=== PATIENT | male | born 1955 | race Caucasian/White ===

== ENCOUNTER 2016-12-02 05:43 | Inpatient (IN) | payer BC ==
[2016-11-19 20:01] LABS: BASOPHILS 0.6 %; BASOPHILS ABSOLUTE 0.04 10/3/uL (0.0-0.16); EOSINOPHILS 5.9 %; EOSINOPHILS ABSOLUTE 0.37 10/3/uL (0.0-0.53); HEMATOCRIT 44.1 % (40.0-51.0); IMMATURE GRANULOCYTES 0.2 %; IMMATURE GRANULOCYTES ABSOLUTE 0.01 10/3/uL (0.0-0.11); LYMPHOCYTES 31.6 %; LYMPHOCYTES ABSOLUTE 1.98 10/3/uL (0.67-4.30); MANUAL DIFF NO %; MEAN CORPUSCULAR HEMOGLOB 32.8 pg (26.0-34.0); MEAN CORPUSCULAR VOLUME 96.3 fL (80-100); MEAN PLATELET VOLUME 11.2 fL (9.2-13.0); NEUTROPHILS 53.7 %; NEUTROPHILS ABSOLUTE 3.37 10/3/uL (2.02-8.40); PLATELET COUNT 185 10/3/uL (150-400); RED CELL COUNT 4.58 10/6/uL (4.7-6.1); WHITE BLOOD CELLS 6.3 10/3/uL (4.5-10.5)
[2016-11-19 20:03] LABS: INTERNATIONAL NORMAL RATI 0.9 UNITS (-); PROTIME (NOT ORD) 12.4 SEC (12.0-14.5)
[2016-11-19 20:09] LABS: ASCORBIC ACID (UR NOT ORDER) NEG (NEG); BILIRUBIN, URINE NEGATIVE (NEG); KETONE, URINE NEGATIVE (NEG); LEUKOCYTE ESTERASE(NOT OR NEG (NEG); WBC (NOT ORDERED) (RFLEX) 1 (0-5)
[2016-11-19 20:18] LABS: A/G RATIO 1.6 (0.7-1.9); ALBUMIN 4.2 G/DL (3.5-5.0); ALKALINE PHOSPHATASE 74 U/L (45-117); BUN (BLOOD UREA NITROGEN) 19 MG/DL (6-23); CALCIUM, SERUM 9.6 MG/DL (8.5-10.4); CHLORIDE, SERUM 104 MMOL/L (96-112); CO2 (CARBON DIOXIDE) 30 MMOL/L (24-34); CREATININE 0.84 MG/DL (0.70-1.30); GFR AFRICAN AMERICAN 110 ML/MIN (>=60); GFR NON AFRICAN AMERICAN 95 ML/MIN (>=60); GLOBULIN 2.7 G/DL (2.5-4.1); GLUCOSE, SERUM 101 MG/DL (60-99); SGOT(AST) 20 U/L (5-40); SGPT(ALT) 30 U/L (5-65); SODIUM, SERUM 140 MMOL/L (135-148); TOTAL BILIRUBIN 0.7 MG/DL (0-1.2); TOTAL PROTEIN 6.9 G/DL (6.0-8.5)
--- NOTE | ~2016-12-02 | OP ---
Record Of Operation [facility] [address] [place]. [address] NAME: ABDULLAHI MARTÍNEZ : 55 STATUS : ADM IN PAT#: [id number] AGE: 61 ADM/REG DATE : 12/02/16 MR#: [id number] REPORT SERV DATE: 12/02/16 DICTATED BY: ABDULLAHI FRANKEL DATE: 12/02/16 REPORT STATUS : Draft TRANSCRIBED BY: MODL DATE: 12/02/16 DATE OF PROCEDURE: 12/02/2016 PREOPERATIVE DIAGNOSIS: Severe bilateral knee degenerative joint disease. POSTOPERATIVE DIAGNOSIS: Severe bilateral knee degenerative joint disease. OPERATION: Bilateral posterior stabilized total knee replacement, cemented. SIDE: Right and left. SIZE: See chart. ANESTHESIA: See chart. ESTIMATED BLOOD LOSS: About 10 mL, each knee. TOURNIQUET TIME: Approximately 1 hour and 10 minutes. COMPLICATIONS: None. SPECIMENS: Articular surfaces. DESCRIPTION OF PROCEDURE: The patient was appropriately identified and marked. The operative side agreed with the consent form and it was checked by all members of the surgical team. The patient was taken to the operating room and anesthesia was induced per the anesthesiologist. The patient was carefully transferred to the operating table without incident. The patient received appropriate prophylactic antibiotics and a Cervantes catheter was placed in the standard sterile technique. The patient was then carefully positioned, padded, prepped and draped in the normal sterile fashion. The operative leg had been appropriately identified and checked by all members of the operating team against the consent form and found to be the correct limb. The patient's lower extremity was then exsanguinated with an Dk wrap and a tourniquet was inflated to 350 mmHg. Sharp dissection was carried out through a straight midline longitudinal incision and electrocautery through the fat. Sharp quad splitting approach was carried out between about the medial 10 percent of the tendon and the lateral 90 percent of the tendon and down around the medial aspect of the patella and then 1 cm medial to the tibial tubercle. The patella was carefully everted and the posterior fat pad was excised and gentle MCL elevation was carried out off the proximal medial tibia subperiosteally. IM guide was placed in the distal femur after using the appropriate drill. The distal femoral cutting guide was held with 2 pins and the distal cut made. Meniscal fragments and the ACL and the PCL were excised with electrocautery, carefully staying anterior to the posterior fat pad. The proximal tibial alignment guide was set appropriately and the proximal tibial cut made. Spacer block verified full extension with excellent mediolateral balance. Sizing guide was used to place 2 drill holes Record Of Operation [facility] [address] [place]. [address] NAME: ABDULLAHI MARTÍNEZ : 55 STATUS : ADM IN PAT#: [id number] AGE: 61 ADM/REG DATE : 12/02/16 MR#: [id number] REPORT SERV DATE: 12/02/16 DICTATED BY: ABDULLAHI FRANKEL DATE: 12/02/16 REPORT STATUS : Draft TRANSCRIBED BY: MODL DATE: 12/02/16 in the distal femur and the four-in-one cutting block was then placed, impacted and checked to be sure it would not notch with an noni wing and it was held with 2 pins. The anterior cut, posterior cut, anterior chamfer and posterior chamfer cuts were made. The pins were removed and the block was removed. A posterior release was carried out with a curved 3/4 inch osteotome staying right on the bone posteriorly. The box-cut guide was then placed, impacted and held with 2 pins and a reciprocating saw was used to cut out the box. With the trial components in place, there was excellent medial/lateral balance. The patella was then measured with a caliper, cut first with an oscillating saw and then reamed with a patella reamer. With the trial patella in place, there was excellent patellar tracking. Rotation was marked on the tibia and the tibia prepared with a drill and stamp chisel. All surfaces were then copiously irrigated with pulsatile lavage, carefully dried and then vacuum-mixed cement was pressurized with a cement gun in a doughy phase. The tibial component was placed, impacted and excess cement was removed. The cement was then pressurized in the femur and placed on the posterior runners of the femoral component, which was placed, impacted and excess cement removed and the knee was brought out into extension on a trial spacer. The cement was then pressurized in the patella. Patellar component was then placed, clamped and excess cement was removed. Once all cement was hardened, the knee was taken through range of motion. Further extruded cement was removed with a small osteotome. Then based on the trial inserts, we decided on the actual insert, which was placed in the standard fashion and held with a locking mechanism. The knee was then copiously irrigated and then closed in a layered fashion over a medium Hemovac drain superolaterally with interrupted #1 in the deep fascia, 2-0 subcutaneous and patrick in the skin. The wounds were dressed sterilely and the tourniquet was deflated. After completion of the first knee and discussion with the anesthesiologist, all parameters were acceptable and we decided to proceed with the second knee. Same procedure as that dictated above was carried out on the contralateral knee. The contralateral leg was again appropriately identified and checked by all members of the operating team against the consent form and found to be the correct limb. The patient's lower extremity was then exsanguinated with an Dk wrap and a tourniquet was inflated to 350 mmHg. Sharp dissection was carried out through a straight midline longitudinal incision and electrocautery through the fat. Sharp quad splitting approach was carried out between about the medial 10 percent of the tendon and the lateral 90 percent of the tendon and down around the medial aspect of the patella and then 1 cm medial to the tibial tubercle. The patella was carefully everted and the posterior fat pad was excised and gentle MCL elevation was carried out off the proximal medial tibia subperiosteally. IM guide was placed in the distal femur after using the appropriate drill. The distal femoral cutting guide was held with 2 pins and the distal cut made. Meniscal fragments and the ACL and the PCL were excised with electrocautery, carefully staying anterior to the posterior fat pad. The proximal tibial alignment guide was set appropriately and the proximal tibial cut made. Spacer block verified full extension with excellent mediolateral balance. Sizing guide was used to place 2 drill holes in the distal femur and the four-in-one cutting block was then placed, impacted and checked to be sure it would not notch with an noni wing and it was held with 2 pins. The anterior cut, posterior cut, anterior chamfer and posterior chamfer cuts were made. The pins were removed and the block was removed. A posterior release was carried out with a curved 3/4 inch osteotome staying right on the bone posteriorly. The box Record Of Operation [facility] [address] [place]. [address] NAME: ABDULLAHI MARTÍNEZ : 55 STATUS : ADM IN LOCATED WITHIN [facility]#: [id number] AGE: 61 ADM/REG DATE : 12/02/16 MR#: [id number] REPORT SERV DATE: 12/02/16 DICTATED BY: ABDULLAHI FRANKEL DATE: 12/02/16 REPORT STATUS : Draft TRANSCRIBED BY: JOSUE DATE: 12/02/16 cut guide was then placed, impacted and held with 2 pins and a reciprocating saw was used to cut out the box. With the trial components in place, there was excellent medial/lateral balance. The patella was then measured with a caliper, cut first with an oscillating saw and then reamed with a patella reamer. With the trial patella in place, there was excellent patellar tracking. Rotation was marked on the tibia and the tibia prepared with a drill and stamp chisel. All surfaces were then copiously irrigated with pulsatile lavage, carefully dried and then vacuum-mixed cement was pressurized with a cement gun in a doughy phase. The tibial component was placed, impacted and excess cement was removed. The cement was then pressurized in the femur and placed on the posterior runners of the femoral component, which was placed, impacted and excess cement removed and the knee was brought out into extension on a trial spacer. The cement was then pressurized in the patella. Patellar component was then placed, clamped and excess cement was removed. Once all cement was hardened, the knee was taken through range of motion. Further extruded cement was removed with a small osteotome. Then based on the trial inserts, we decided on the actual insert, which was placed in the standard fashion and held with a locking mechanism. The knee was then copiously irrigated and then closed in a layered fashion over a medium Hemovac drain superolaterally with interrupted #1 in the deep fascia, 2-0 subcutaneous and patrick in the skin. The wounds were dressed sterilely and the tourniquet was deflated. The patient was then awakened and taken to the postanesthesia care unit without incident. All counts were correct at the end of the case. TOSIN/JOSUE Hina Frankel M.D. / [id number] CC: Zack Gilliam, M.D.
--- NOTE | ~2016-12-02 | OP ---
Record Of Operation [facility] [address] [place]. [address] NAME: ABDULLAHI MARTÍNEZ : 55 STATUS : DIS IN PAT#: [id number] AGE: 61 ADM/REG DATE : 12/02/16 MR#: [id number] REPORT SERV DATE: 12/24/16 DICTATED BY: ABDULLAHI FRANKEL DATE: 12/02/16 REPORT STATUS : Draft TRANSCRIBED BY: MODL DATE: 12/02/16 DATE OF PROCEDURE: 12/02/2016 PREOPERATIVE DIAGNOSIS: Severe left hip degenerative joint disease. POSTOPERATIVE DIAGNOSIS: Severe left hip degenerative joint disease. PROCEDURE: Uncemented total hip arthroplasty, Tri-Lock. SIDE: Left. BUDGET CONTROLLER: ANESTHESIA: See chart. SIZE: See chart. ESTIMATED BLOOD LOSS: About 100 mL. INDICATIONS FOR SURGERY: PROCEDURE: The patient was taken to the operating room and placed supine on the table without incident. Anesthetic was induced per the anesthesiologist. A Cervantes catheter was placed by the nurse in the standard sterile technique. The correct side for the procedure was identified by preoperative markings and matched with the consent form. All personnel in the room were in agreement regarding the procedure, patient, and side. The patient was then carefully positioned and carefully padded and prepped and draped in the normal sterile fashion. The patient received prophylactic preoperative antibiotics at the appropriate time. The preoperative x-ray was brought up on the monitor. Again, this was reviewed with the staff in the room. According with the preoperative plan, and angled, an anterolateral incision was made centered over the trochanter extending from proximal posterior to distal anterior. Electrocautery was used to maintain meticulous hemostasis. The IT band was split in line with its fibers. A Charnley retractor was placed over saline moistened laps. A standard anterolateral approach to the hip was carried out dissecting in line with the vastus medialis fibers lifting the inferior 20% of the vastus medialis, proximally the interior 20% of the gluteus medius and gluteus minimus tendons off the anterior capsule. Periosteal elevator was used to elevate soft tissue gently directly off the proximal anterior femoral bone. Appropriate retractors were carefully placed. Complete anterior capsulectomy was performed. The hip was then carefully dislocated with a combination of traction maneuver by the housekeeping assistant and scooping the ball out of the socket with a Hohmann. A femoral neck osteotomy was marked according to what had been preoperatively planned with a broach as a template. The distance for the femoral neck osteotomy was measured with a ruler. A femoral neck osteotomy was made with an oscillating saw under appropriate retraction. Meticulous hemostasis was again obtained. The leg was then brought up out of the anterior bag and Record Of Operation [facility] [address] [place]. [address] NAME: ABDULLAHI MARTÍNEZ : 55 STATUS : DIS IN PAT#: [id number] AGE: 61 ADM/REG DATE : 12/02/16 MR#: [id number] REPORT SERV DATE: 12/24/16 DICTATED BY: ABDULLAHI FRANKEL DATE: 12/02/16 REPORT STATUS : Draft TRANSCRIBED BY: JOSUE DATE: 12/02/16 positioned with the lower extremity in external rotation and slight flexion. Acetabular retractors were placed carefully palpating to be sure that they were directly on the bone. The acetabular labrum was excised with electrocautery and rongeur. Pulvinar fat was removed with a large curette and rongeur and again meticulous hemostasis was obtained. Sequential reamers were used in the acetabulum to 1 mm. less than the final size which was chosen. This was felt to give excellent interference fit. The acetabular fossa was then copiously irrigated with pulsatile lavage and actual acetabular component was placed and impacted and checked to make sure it was down snug. The overall alignment was checked. The acetabular physical chemist was then removed. Screws were placed in the standard fashion. A drill, depth gauge and self tapping screw placement taking care not to plunge as the drill holes were carefully placed. A trial liner was then placed and attention directed back to the proximal femur. The leg was placed back into the anterior bag. The proximal femur was prepared using a box chisel following by a T-handled reamer to determine the intramedullary alignment. This was followed by sequential broaches up to the final broach. Once it was seated in the appropriate position, a Calcar reamer was used to plane the proximal femur. Trial reduction was then done with a trial prosthetic ball and neck. A straight edge was used to compare the tip of the trochanter to center of the ball relationship to what had been noted on the preoperative x-ray. Careful reduction was then done of the total hip. Palpation was done to ascertain and compare leg lengths by palpating the nonoperative leg and also by checking soft tissue tension. The stability of the hip was checked in full extension with full external rotation and in full flexion with adduction, flexion and internal rotation. The hip was then redislocated with a bone hook. The femoral trial and femoral broach were removed. The acetabulum was then prepared under appropriate retraction by removing the trial liner. A central hole eliminator was placed and tightened. The shell was irrigated out. The actual insert was placed and impacted and then checked to be sure it was down snug with a joker. The leg was again positioned in the bag. The proximal femur exposed, irrigated and the actual thermal prosthesis was taken from the business services representative and impacted. Once it was down, the trunnion was cleansed with a wet and dry lap and the prosthetic thermal head was placed and impacted and checked to be sure it was down snug. The acetabulum was irrigated and reduction was obtained. Again, we checked soft tissue tension, leg length and stability as described above. The hip was closed in a layered fashion with a 5 mm. Mersilene tape placed through a single drill hole in the proximal anterior/superior trochanter reattaching the gluteus medius and minimus fibers. The vastus lateralis, gluteus medius, and gluteus minimus were then closed in a sleeve. Drain was placed between the vastus and the IT band exiting distally anteriorly. The IT band was closed. Subcutaneous closure and skin closure were then obtained. A sterile dressing was applied. The patient was carefully positioned into a supine position and then awakened. The patient was then carefully transferred to the stretcher to be returned to the postoperative care unit without incident. COMPLICATION: None. SPECIMENS: Right femoral head. Record Of Operation [facility] [address] [facility] [place]. [address] NAME: LILIANEVALERIEABDULLAHI : 55 STATUS : DIS IN PAT#: [id number] AGE: 61 ADM/REG DATE : 12/02/16 MR#: [id number] REPORT SERV DATE: 12/24/16 DICTATED BY: ABDULLAHI FRANKEL DATE: 12/02/16 REPORT STATUS : Draft TRANSCRIBED BY: MODL DATE: 12/02/16 WTB/MODL Hina Frankel M.D. / [id number] CC: Zack Gilliam M.D.
[~2016-12-02 05:43] MED LIST: ALEVE220 MG PO; ASA5GR PO; AVALIDE1 TAB PO; BYSTOLIC10 MG PO; CENTRUM PO; HYZAAR 100/25 T1 TAB PO; KLOR-CON 1010 MEQ PO; LIPITOR40 PO; NORV10 PO; PLAVIX PO; RYTHMOL150 MG PO; TOPXL50 PO; X5 PO
[2016-12-03 05:06] LABS: HEMATOCRIT 35.3 % (40.0-51.0)
[2016-12-03 05:17] LABS: INTERNATIONAL NORMAL RATI 1.1 UNITS (-); PROTIME (NOT ORD) 14.1 SEC (12.0-14.5)
[2016-12-03 05:22] LABS: BUN (BLOOD UREA NITROGEN) 17 MG/DL (6-23); CALCIUM, SERUM 8.8 MG/DL (8.5-10.4); CHLORIDE, SERUM 100 MMOL/L (96-112); CO2 (CARBON DIOXIDE) 29 MMOL/L (24-34); CREATININE 0.89 MG/DL (0.70-1.30); GFR AFRICAN AMERICAN 107 ML/MIN (>=60); GFR NON AFRICAN AMERICAN 92 ML/MIN (>=60); GLUCOSE, SERUM 112 MG/DL (60-99); SODIUM, SERUM 137 MMOL/L (135-148)
[2016-12-03] MEDS ORDERED: NORCO1 TA2 PO (10:55)
[2016-12-03] MEDS ORDERED: C5 PO (10:55)
== END 2016-12-03 15:19 | disposition home or self-care (01) | DRG 470 ==
LOC: SDC/OF 05:43 → 3JRC 10:13
PROVIDERS: Specialist
PROC: 0SR902A Replacement of Right Hip Joint with Metal on Polyethylene Synthetic Substitute, Uncemented, Open Approach (ICD-10-PCS; principal; 2016-12-02 06:30)
DX: M16.11 Unilateral primary osteoarthritis, right hip (principal); I10 Essential (primary) hypertension; E78.5 Hyperlipidemia, unspecified; I25.10 Atherosclerotic heart disease of native coronary artery without angina pectoris; Z95.5 Presence of coronary angioplasty implant and graft; I48.2 Chronic atrial fibrillation; G47.33 Obstructive sleep apnea (adult) (pediatric); I25.2 Old myocardial infarction; F17.210 Nicotine dependence, cigarettes, uncomplicated; J44.9 Chronic obstructive pulmonary disease, unspecified; Z88.8 Allergy status to other drugs, medicaments and biological substances; Z79.899 Other long term (current) drug therapy; Z79.82 Long term (current) use of aspirin; Z79.02 Long term (current) use of antithrombotics/antiplatelets
CPT/HCPCS: 36415; 71020-PO; 72170; 80048; 80053; 81001; 85014; 85018; 85025; 85610; 86850; 86900; 86901; 87641; 88304; 88311; 93005; 97116-GP; 97150-GP; 97161-GP; 97165-GO; A9270-GY; C1713; C1776; J0690; J1885; J2250; J2270; J2405; J2710; J2795; J3010